=== PATIENT | female | born 1975 | race Caucasian/White ===

== ENCOUNTER 2018-07-15 22:08 | Emergency (ER) | payer MEDICARE ==
[~2018-07-15] VITALS: Ht 162.6 cm; Wt 59.0 kg
[~2018-07-15 22:08] MED LIST: DIAZEPAM10 MG PO; GABA600T7 PO; LAMO100T5 PO; MORP30TA83 PO; NITR100C62 PO; VARE1TAB21 PO
[2018-07-15 22:20] VITALS: BP 106/71
[2018-07-15] MEDS ORDERED: MORPHINE ER 15 MG TABLET.ER PO ONE (23:50)
--- NOTE | 2018-07-16 00:33 | PHYS DOC ---
Past Medical History Past Medical History: Anxiety, Bipolar Additional Past Medical Histor: MS, mood disorder, panic disorder Past Surgical History: Cholecystectomy Alcohol Use: None Drug Use: None Adult General Chief Complaint Chief Complaint: MEDICATION REFILL [facility] HPI Patient is a 43 year old female presenting with would like a dose of her morphine. Apparently she rounded day early because it was a 31 day month and the refill date landed on a weekend. She said she started to feel like she is withdrawing from morphine she is feeling shaky and tremulous and had a couple seconds of sharp left-sided chest pain earlier in the day today she is going tomorrow to the pharmacy to get her morphine but she just wanted a dose to get her through the night. Apparently not having any chest pain no anginal symptoms no shortness of breath Review of Systems Review of Systems Constitutional: Denies fever or chills [] Eyes: Denies change in visual acuity, redness, or eye pain [] HENT: Denies nasal congestion or sore throat [] Respiratory: Denies cough or shortness of breath [] Cardiovascular: No additional information not addressed in HPI [] GI: Denies abdominal pain,bloody stools or diarrhea [] Chronic pain secondary to MS All other systems were reviewed and found to be within normal limits, except as documented in this note. Current Medications Current Medications Current Medications Medications (Trade) Dose Ordered Sig/Lindsay Start Time Stop Time Status Last Admin Dose Admin Morphine Sulfate (Ms Contin) 30 mg 1X ONCE 07/15/18 23:50 07/15/18 23:51 DC 07/16/18 00:07 30 MG Allergies Allergies Allergies Coded Allergies Type Severity Reaction Last Updated Verified acetaminophen Allergy Unknown 07/15/18 Yes diphenhydramine HCl Allergy Unknown nausea 07/15/18 Yes oxycodone Allergy Unknown 07/15/18 Yes Physical Exam Physical Exam Constitutional: Well developed, well nourished, no acute distress, non-toxic appearance. [] HENT: Normocephalic, atraumatic, bilateral external ears normal, oropharynx moist, no oral exudates, nose normal. [] Eyes: PERRLA, EOMI, conjunctiva normal, no discharge. [] Neck: Normal range of motion, no tenderness, supple, no stridor. [] Cardiovascular:Heart rate regular rhythm, no murmur [] Lungs & Thorax: Bilateral breath sounds clear to auscultation [] Abdomen: Bowel sounds normal, soft, no tenderness, no masses, no pulsatile masses. [] Skin: Warm, dry, no erythema, no rash. [] Extremities: Patient has obvious evidence of baseline limitation of gait with antalgic gait Neurologic: Alert and oriented X 3, normal motor function, normal sensory function, no focal deficits noted. [] Psychologic: Affect normal, judgement normal, mood normal. [] Current Patient Data Vital Signs Vital Signs Date Time Temp Pulse Resp B/P (MAP) Pulse Ox O2 Delivery O2 Flow Rate FiO2 07/16/18 00:07 24 96 Room Air 07/15/18 22:20 98.2 77 106/71 (83) 98.2 EKG EKG []Normal sinus rhythm rate of 50 or ischemic changes noted interpreted encounter Radiology/Procedures Radiology/Procedures [] Course & Med Decision Making Course & Med Decision Making Pertinent Labs and Imaging studies reviewed. (See chart for details) []43-year-old female who presents for medication Antione folic she is withdrawing from her chronic morphine due to issue with refill date as it is a weekend and it was a 31 day month. Patient was given a dose of oral morphine in the emergency room and felt much better symptoms all resolved she was doing well at time of discharge vital stable Dragon Disclaimer Dragon Disclaimer This electronic medical record was generated, in whole or in part, using a voice recognition dictation system. Departure Departure Impression: Primary Impression: Chronic pain Disposition: HOME, SELF-CARE Condition: STABLE Patient Instructions: Chronic Pain SAVANNAH SANCHEZ MD Jul 16, 2018 00:33
--- NOTE | 2018-07-16 06:54 | EKG ---
[facility] [address] [place] [id number] Test Date: 2018-07-15 Test Time: 23:35:50 Pat Name: MARISABEL GARCIA Department: Room: Gender: F [employer]: : 1975 Requested By: SAVANNAH SANCHEZ Order Number: [id number] Reading MD: Measurements Intervals [place] Rate: 50 P: 0 VT: 102 QRS: 64 QRSD: 82 T: 23 QT: 412 QTc: 377 Interpretive Statements SINUS RHYTHM NORMAL ECG No previous ECG available for comparison
== END 2018-07-16 00:30 | disposition home or self-care (01) ==
LOC: ER 22:08
DX: G89.29 Other chronic pain (principal); Z76.0 Encounter for issue of repeat prescription; R07.89 Other chest pain; G35 Multiple sclerosis; F31.9 Bipolar disorder, unspecified; F41.9 Anxiety disorder, unspecified; Z88.6 Allergy status to analgesic agent; Z88.5 Allergy status to narcotic agent
CPT/HCPCS: 93005; 99283